=== PATIENT | male | born 1960 | race Caucasian/White ===

== ENCOUNTER → 2017-12-08 08:15 | Outpatient (CLI) | payer OTHER, SELFPAY ==
[2017-12-08 10:21] LABS: AST(SGOT) 21 U/L (15-37); Alanine Aminotransfer ALT/SGPT 39 U/L (16-61); Albumin, Serum 3.7 g/dL (3.2-5.0); Alkaline Phosphatase 54 U/L (45-117); Anion Gap 8 (5-15); BUN 18 mg/dL (7-18); BUN/Creat Ratio 14.1 RATIO (10-20); Bilirubin, Direct 0.09 mg/dL (0.00-0.30); Calcium,Total 8.5 mg/dL (8.5-10.1); Chloride 103 mmol/L (98-107); Cholesterol 142 mg/dL (200); Creatinine, Serum 1.28 mg/dL (0.70-1.30); EST Glomerular Filtration Rate 61 mL/min (>60); Est Glom Filt Rate - Afr Amer 74 mL/min (>60); Globulin 3.6 g/dL (2.2-4.2); Glucose 108 mg/dL (74-106); High Density Lipoprotein 25 mg/dL; Potassium 4.2 mmol/L (3.5-5.1); Protein, Total 7.3 g/dL (6.4-8.2); Sodium Level 137 mmol/L (136-145); Triglycerides 166 mg/dL; Very Low Density Lipoprotein 33 mg/dL (5-40)
[2017-12-08 10:24] LABS: Microalbumin,Random Urine 8.2 mg/L (NO RANGE EST.)
[2017-12-08 10:26] LABS: Hemoglobin A1c 6.5 % (4.2-6.3)
== END ==
PROVIDERS: Family Provider Family Medicine; PCP Family Medicine; Visit Provider Family Medicine
DX: E11.9 Type 2 diabetes mellitus without complications (principal)
CPT/HCPCS: 36415; 80048; 80061; 80076; 82043; 82570; 83036

== ENCOUNTER → 2018-10-06 08:47 | Outpatient (CLI) | payer OTHER, SELFPAY ==
[2018-10-06 10:23] LABS: Anion Gap 10 (5-15); BUN 22 mg/dL (7-18); BUN/Creat Ratio 18.6 RATIO (10-20); Calcium,Total 8.6 mg/dL (8.5-10.1); Chloride 104 mmol/L (98-107); Creatinine, Serum 1.18 mg/dL (0.70-1.30); EST Glomerular Filtration Rate 67 mL/min (>60); Est Glom Filt Rate - Afr Amer 81 mL/min (>60); Glucose 128 mg/dL (74-106); Potassium 4.1 mmol/L (3.5-5.1); Sodium Level 138 mmol/L (136-145)
[2018-10-06 10:43] LABS: Microalbumin,Random Urine 9.1 mg/L (NO RANGE EST.); Microalbumin:Creatinine Ratio 12.2 mg/g CRE (<30 mg/g CRE)
== END ==
PROVIDERS: Family Provider Family Medicine; PCP Family Medicine; Referring Provider Family Medicine; Visit Provider Family Medicine
DX: E11.9 Type 2 diabetes mellitus without complications (principal)
CPT/HCPCS: 36415; 80048; 82043; 82570

== ENCOUNTER → 2019-04-17 08:02 | Outpatient (CLI) | payer OTHER, SELFPAY ==
[2019-04-17 10:29] LABS: Anion Gap 6 (5-15); BUN 21 mg/dL (7-18); BUN/Creat Ratio 16.9 RATIO (10-20); Calcium,Total 8.9 mg/dL (8.5-10.1); Chloride 102 mmol/L (98-107); Cholesterol 159 mg/dL (200); Creatinine, Serum 1.24 mg/dL (0.70-1.30); EST Glomerular Filtration Rate 63 mL/min (>60); Est Glom Filt Rate - Afr Amer 76 mL/min (>60); Glucose 152 mg/dL (74-106); High Density Lipoprotein 25 mg/dL; Potassium 4.3 mmol/L (3.5-5.1); Sodium Level 136 mmol/L (136-145); Triglycerides 206 mg/dL; Very Low Density Lipoprotein 41 mg/dL (5-40)
== END ==
PROVIDERS: PCP Family Medicine; Visit Provider Family Medicine
DX: E11.9 Type 2 diabetes mellitus without complications (principal); E78.5 Hyperlipidemia, unspecified
CPT/HCPCS: 36415; 80048; 80061

== ENCOUNTER → 2019-05-14 16:58 | Outpatient (CLI) | payer OTHER, SELFPAY ==
[2019-05-14 18:12] LABS: Absolute Lymphocyte Count 1.52 X10^3/uL (0.83-4.51); Absolute Neutrophil Count 1.5 X10^3/uL (2.0-7.7); Basophil# 0.05 X10^3/uL; Basophil% 1.5 % (0-1); Eosinophil# 0.07 X10^3/uL; Hematocrit 44.6 % (40-54); Hemoglobin 15.1 g/dL (13.0-16.5); Lymphocyte # 1.52 X10^3/ul (4.0); Lymphocyte % 44.2 % (19-41); Mean Corp Hgb Conc 33.9 g/dL (32-36); Mean Corpuscular Hgb 29.5 pg (27.0-32.0); Mean Corpuscular Volume 87.1 fL (80-94); Monocyte# 0.25 X10^3/uL; Monocyte% 7.3 % (0-10); NRBC Flagged by Analyzer 0 % (0-5); Neutrophil # 1.54 X10^3/uL (2.7-7.7); Neutrophil % 44.7 % (47-70); Platelet Count 228 K/mm3 (150-450); RBC Distribution Width SD 38.5 fl (35.1-43.9); Red Blood Count 5.12 M/mm3 (4.6-6.2); White Blood Count 3.4 K/mm3 (4.4-11.0)
[2019-05-14 18:22] LABS: Erythrocyte Sedimentation Rate 14 mm/hr (0-20)
[2019-05-14 18:54] LABS: Anion Gap 9 (5-15); BUN 17 mg/dL (7-18); BUN/Creat Ratio 15.9 RATIO (10-20); Calcium,Total 8.8 mg/dL (8.5-10.1); Chloride 99 mmol/L (98-107); Creatinine, Serum 1.07 mg/dL (0.70-1.30); EST Glomerular Filtration Rate 75 mL/min (>60); Est Glom Filt Rate - Afr Amer 90 mL/min (>60); Glucose 76 mg/dL (74-106); Potassium 3.8 mmol/L (3.5-5.1); Rheumatoid Factor < 10.0 IU/mL (<15); Sodium Level 133 mmol/L (136-145)
[2019-05-16 17:05] LABS: ANTINUCLEAR ANTIBODIES DIRECT Positive (Negative)
== END ==
PROVIDERS: PCP Family Medicine; Referring Provider Family Medicine; Visit Provider Family Medicine
DX: M19.90 Unspecified osteoarthritis, unspecified site (principal)
CPT/HCPCS: 36415; 80048; 85025; 85652; 86038; 86140; 86431

== ENCOUNTER → 2020-01-09 08:42 | Outpatient (CLI) | payer OTHER, SELFPAY ==
[2020-01-09 10:21] LABS: Anion Gap 5 (5-15); BUN 19 mg/dL (7-18); BUN/Creat Ratio 17.3 RATIO (10-20); Calcium,Total 8.6 mg/dL (8.5-10.1); Chloride 105 mmol/L (98-107); EST Glomerular Filtration Rate 72 mL/min (>60); Est Glom Filt Rate - Afr Amer 87 mL/min (>60); Glucose 200 mg/dL (74-106); Potassium 4.3 mmol/L (3.5-5.1); Sodium Level 136 mmol/L (136-145)
== END ==
PROVIDERS: PCP Family Medicine; Referring Provider Family Medicine; Visit Provider Family Medicine
DX: Z00.00 Encounter for general adult medical examination without abnormal findings (principal); Z13.220 Encounter for screening for lipoid disorders
CPT/HCPCS: 36415; 80048

== ENCOUNTER → 2020-04-10 08:26 | Outpatient (CLI) | payer OTHER, SELFPAY ==
[2020-04-10 10:52] LABS: Anion Gap 6 (5-15); BUN 23 mg/dL (7-18); BUN/Creat Ratio 18.5 RATIO (10-20); Calcium,Total 8.9 mg/dL (8.5-10.1); Chloride 106 mmol/L (98-107); Cholesterol 199 mg/dL (200); Creatinine, Serum 1.24 mg/dL (0.70-1.30); EST Glomerular Filtration Rate 63 mL/min (>60); Est Glom Filt Rate - Afr Amer 76 mL/min (>60); Glucose 131 mg/dL (74-106); High Density Lipoprotein 29 mg/dL; Potassium 4.3 mmol/L (3.5-5.1); Sodium Level 137 mmol/L (136-145); Triglycerides 134 mg/dL; Very Low Density Lipoprotein 27 mg/dL (5-40)
[2020-04-10 11:15] LABS: Microalbumin,Random Urine 91.3 mg/L (NO RANGE EST.); Microalbumin:Creatinine Ratio 43.1 mg/g CRE (<30 mg/g CRE)
== END ==
PROVIDERS: PCP Family Medicine; Referring Provider Family Medicine; Visit Provider Family Medicine
DX: E11.9 Type 2 diabetes mellitus without complications (principal)
CPT/HCPCS: 36415; 80048; 80061; 82043; 82570

== ENCOUNTER → 2020-07-07 08:18 | Outpatient (CLI) | payer OTHER, SELFPAY ==
[2020-07-07 10:16] LABS: Anion Gap 9 (5-15); BUN 19 mg/dL (7-18); Calcium,Total 8.9 mg/dL (8.5-10.1); Chloride 97 mmol/L (98-107); Cholesterol 128 mg/dL (200); Creatinine, Serum 1.12 mg/dL (0.70-1.30); EST Glomerular Filtration Rate 71 mL/min (>60); Est Glom Filt Rate - Afr Amer 85 mL/min (>60); Glucose 216 mg/dL (74-106); High Density Lipoprotein 26 mg/dL; Potassium 4.1 mmol/L (3.5-5.1); Sodium Level 135 mmol/L (136-145); Triglycerides 202 mg/dL; Very Low Density Lipoprotein 40 mg/dL (5-40)
[2020-07-07 10:19] LABS: Hemoglobin A1c 8.6 % (3.8-5.6)
== END ==
PROVIDERS: PCP Family Medicine; Visit Provider Family Medicine
DX: E11.9 Type 2 diabetes mellitus without complications (principal)
CPT/HCPCS: 36415; 80048; 80061; 83036

== ENCOUNTER → 2021-01-07 08:35 | Outpatient (CLI) | payer OTHER, SELFPAY ==
[2021-01-07 10:37] LABS: Anion Gap 6 (5-15); BUN 19 mg/dL (7-18); BUN/Creat Ratio 15.2 RATIO (10-20); Calcium,Total 8.9 mg/dL (8.5-10.1); Chloride 101 mmol/L (98-107); Cholesterol 117 mg/dL (200); Creatinine, Serum 1.25 mg/dL (0.70-1.30); EST Glomerular Filtration Rate 62 mL/min (>60); Est Glom Filt Rate - Afr Amer 75 mL/min (>60); Glucose 149 mg/dL (74-106); High Density Lipoprotein 25 mg/dL; Sodium Level 133 mmol/L (136-145); Triglycerides 174 mg/dL; Very Low Density Lipoprotein 35 mg/dL (5-40)
== END ==
PROVIDERS: PCP Family Medicine; Referring Provider Family Medicine; Visit Provider Family Medicine
DX: E11.9 Type 2 diabetes mellitus without complications (principal)
CPT/HCPCS: 36415; 80048; 80061

== ENCOUNTER 2021-06-15 12:59 | Emergency (ER) | payer OTHER, SELFPAY ==
[2021-06-15 13:00] VITALS: BP 164/99; PULSE 84; RESP 18; TEMP 35.8; O2SAT 98; BMI 32.8
--- NOTE | 2021-06-15 13:35 | EKG12_ITS ---
Test Reason : DIZZINESS Blood Pressure : / mmHG Vent. Rate : 076 BPM Atrial Rate : 076 BPM P-R Int : 172 ms QRS Dur : 094 ms QT Int : 372 ms P-R-T Axes : 050 031 028 degrees QTc Int : 418 ms Normal sinus rhythm Normal ECG Confirmed by TRACY LEONARD, ESSIE ([id number]), acquisition editor AURORA PETE ([id number]) on 06/17/2021 11:37:34 AM Referred By: RITA Confirmed By:ESSIE MOLINA MD
--- NOTE | 2021-06-15 13:35 | CT_ITS ---
STUDY: CT BRAIN WITHOUT CONTRAST REASON FOR EXAM: Male, 61 years old. 3 day history of dizziness. RADIATION DOSAGE (If Supplied By Facility): CTDIvol = ( 44.99 ) mGy, DLP = ( 846.73 ) mGycm TECHNIQUE: Transaxial CT imaging of the brain was performed without administration of intravenous contrast material. Individualized dose optimization techniques were used for this CT. COMPARISON: No relevant priors. FINDINGS: Normal soft tissue structures. Normal calvarium. Normal size ventricles and extra-axial spaces for the patient''s age. Normal white matter tracts of the cerebral hemispheres. Normal basal ganglia and thalami. Normal brainstem. Normal cerebellum. There is no intracranial hemorrhage. There are no findings of an acute ischemic infarction. Normal visualized paranasal sinuses. CT/Brain/Head without Contrast IMPRESSION: Normal unenhanced CT scan of the brain. Electronically Signed: Lazaro Miller MD at 14:23 EDT ,
[2021-06-15 13:59] LABS: Absolute Lymphocyte Count 2.94 X10^3/uL (0.83-4.51); Absolute Neutrophil Count 4.4 X10^3/uL (2.0-7.7); Basophil% 1.2 % (0-1); Eosinophil# 0.12 X10^3/uL; Eosinophils% 1.5 % (0-5); Hematocrit 48.1 % (40-54); Hemoglobin 17.1 g/dL (13.0-16.5); Lymphocyte # 2.94 X10^3/ul (0.83-4.51); Lymphocyte % 35.9 % (19-41); Mean Corp Hgb Conc 35.6 g/dL (32-36); Mean Corpuscular Hgb 30.7 pg (27.0-32.0); Mean Corpuscular Volume 86.4 fL (80-94); Mean Platelet Vol. 9.1 fl (6.2-12.0); Monocyte# 0.59 X10^3/uL; Monocyte% 7.2 % (0-10); NRBC Flagged by Analyzer 0 % (0-5); Neutrophil # 4.43 X10^3/uL (2.7-7.7); Platelet Count 217 K/mm3 (150-450); RBC Distribution Width CV 12.5 % (11.6-14.6); RBC Distribution Width SD 39.2 fl (35.1-43.9); Red Blood Count 5.57 M/mm3 (4.6-6.2); White Blood Count 8.2 K/mm3 (4.4-11.0)
[2021-06-15 14:11] LABS: Anion Gap 6 (5-15); BUN 18 mg/dL (7-18); BUN/Creat Ratio 14.3 RATIO (10-20); Calcium,Total 9.5 mg/dL (8.5-10.1); Chloride 103 mmol/L (98-107); Creatinine, Serum 1.26 mg/dL (0.70-1.30); EST Glomerular Filtration Rate 61 mL/min (>60); Est Glom Filt Rate - Afr Amer 74 mL/min (>60); Estimated Creatinine Clearance 60.01 ml/min; Glucose 123 mg/dL (74-106); Potassium 3.8 mmol/L (3.5-5.1); Sodium Level 134 mmol/L (136-145)
--- NOTE | 2021-06-15 14:11 | RAD_ITS ---
STUDY: X-RAY CHEST REASON FOR EXAM: Male, 61 years old. Chest pain TECHNIQUE: Single AP portable view of the chest. COMPARISON: None. FINDINGS: EKG electrodes are seen. Hyperinflation. The lungs are clear. There is no demonstrated pleural abnormality. Normal size heart. Normal mediastinum and leonel. Normal visualized pulmonary arteries. There is atherosclerotic tortuosity of the aortic arch and descending thoracic aorta. Normal visualized thoracic spine. Normal visualized ribs, clavicles, and shoulders. There is no demonstrated abnormality of the visualized soft tissue structures of the upper abdomen. RAD/Chest 1 View (Portable) IMPRESSION: Hyperinflation. The lungs are clear. Electronically Signed: Lazaro Miller MD at 14:23 EDT ,
[2021-06-15 14:18] LABS: Troponin-I HS (w/2H Reflex) < 3 pg/mL (3.0-78.0)
[2021-06-15] MEDS: Meclizine HCl 25 MG Tablet PO (14:40)
[2021-06-15] MEDS: proMETHazine 25 MG/ML Syringe 12.5 MG IM (14:41)
[2021-06-15 14:53] VITALS: BP 129/73; BP 144/94; BP 146/94; PULSE 88; PULSE 90; PULSE 91
[2021-06-15 14:55] VITALS: BP 160/96; PULSE 75; RESP 20; O2SAT 95
[2021-06-15 15:56] LABS: Reflex Troponin-HS? (from REC) Y
--- NOTE | 2021-06-15 16:05 | EX.ED.DYSGE1 ---
HPI History of Present Illness Chief Complaint: Dizziness Narrative Narrative: 60-year-old male presenting with dizziness. He describes this as vertiginous and lightheaded. Is been ongoing for a few days. No traumatic injury. Mild headache. Mild nausea. No vomiting. Patient seen by his PCPs nurse practitioner today and sent to the ER for evaluation. Patient has history of diabetes, hypertension, hyperlipidemia. He does not have any chest pain or shortness of breath. No fever or chills. PFSH PFSH Medical History Diabetes GERD (gastroesophageal reflux disease) High cholesterol HTN (hypertension) Neuropathy Home Medications empagliflozin [Jardiance] 12.5 mg PO DAILY 06/15/21 [History Last Taken Unknown] esomeprazole magnesium 40 mg PO DAILY 06/15/21 [History Last Taken Unknown] gabapentin 600 mg PO QHS 06/15/21 [History Last Taken Unknown] icosapent ethyl [Vascepa] 2 g PO BID 06/15/21 [History Last Taken Unknown] lisinopril-hydrochlorothiazide 1 tab PO DAILY 06/15/21 [History Last Taken Unknown] meclizine 25 mg PO DAILY PRN #30 tab 06/15/21 [Rx Last Taken Unknown] rosuvastatin 5 mg PO DAILY 06/15/21 [History Last Taken Unknown] sitagliptin-metformin [Janumet] 1 tab PO BID 06/15/21 [History Last Taken Unknown] Allergy/AdvReac Type Severity Reaction Status Date / Time No Known Allergies Allergy Verified 06/15/21 13:02 Social History Smoking Status: Former smoker ROS ROS ED Constitutional Constitutional ED: Denies chills, fever(s) or sweats Eyes Eyes: Reports other Details: Blurry vision with dizziness when turning head ENT ENT ED: Denies rhinorrhea or sore throat Cardiovascular Cardiovascular: Denies chest pain or palpitations Respiratory/Chest Respiratory/Chest: Denies cough or dyspnea Gastrointestinal Gastrointestinal: Reports nausea; Denies abdominal pain Genitourinary Genitourinary ED: Denies dysuria Musculoskeletal Musculoskeletal: Denies arthralgias or myalgias Integumentary Denies rash Neurologic Neurologic: Reports headache(s); Denies paresthesias or weakness EXAM Physical Exam Const Vital Signs: 06/15/21 13:00 06/15/21 13:14 06/15/21 13:52 Temperature 96.5 F L Temperature Source Temporal Pulse Rate 84 Pulse Rate [Lying] Pulse Rate [Sitting (for 1 minute prior to obtaining)] Pulse Rate [Standing (for 1 minute prior to obtaining)] Respiratory Rate 18 Respiratory Effort Normal Non-Labored Respiratory Pattern Normal Blood Pressure 164/99 H Blood Pressure [Lying] Blood Pressure [Sitting (for 1 minute prior to obtaining)] Blood Pressure [Standing (for 1 minute prior to obtaining)] Blood Pressure Mean 120 Blood Pressure Mean [Lying] Blood Pressure Mean [Sitting (for 1 minute prior to obtaining)] Blood Pressure Mean [Standing (for 1 minute prior to obtaining)] Pulse Ox 98 Oxygen Delivery Method Room Air Room Air 06/15/21 14:53 06/15/21 14:55 Temperature Temperature Source Pulse Rate 75 Pulse Rate [Lying] 88 Pulse Rate [Sitting (for 1 minute prior to obtaining)] 90 Pulse Rate [Standing (for 1 minute prior to obtaining)] 91 Respiratory Rate 20 H Respiratory Effort Respiratory Pattern Blood Pressure 160/96 H Blood Pressure [Lying] 144/94 H Blood Pressure [Sitting (for 1 minute prior to obtaining)] 146/94 H Blood Pressure [Standing (for 1 minute prior to obtaining)] 129/73 H Blood Pressure Mean 117 Blood Pressure Mean [Lying] 110 Blood Pressure Mean [Sitting (for 1 minute prior to obtaining)] 111 Blood Pressure Mean [Standing (for 1 minute prior to obtaining)] 91 Pulse Ox 95 Oxygen Delivery Method Room Air Positive well nourished General Appearance ED: NAD; Negative for pallor HEENT Reports moist mucous membranes HEENT Narrative: Nystagmus and some reproducible vertiginous dizziness with [place]-Hallpike Negative for trauma Eyes PERRL and EOMs intact bilaterally Resp normal respiratory effort and clear to auscultation bilaterally Cardio regular rate and regular rhythm GI normal to inspection, nondistended, normoactive bowel sounds Extremity normal to inspection Neuro oriented x3 and CN's II-XII intact bilaterally Sensorium / Orientation: alert Motor Exam: strength 5/5 throughout Psych mental status grossly normal Skin no rashes or lesions noted General Skin Exam: Negative for jaundice or pallor MDM MDM MDM Narrative Medical decision making narrative: Patient does have some reproducible vertiginous dizziness and he does have nystagmus with [place]-Hallpike however he states he still feels lightheaded. I did do orthostatic vital signs and his blood pressure does drop by systolically by 17. Patient not reportedly symptomatic with this. CBC and BMP unremarkable. High-sensitivity protein less than 3. Obtained an EKG which on my interpretation shows a sinus rhythm with ventricular rate of 76 bpm without signs of dysrhythmia or ischemic change. Chest x-ray on my interpretation is no acute cardiopulmonary process and the radiologist agree. Obtain a CT of the brain which was also normal. On arrival patient was medicated with 12.5 mg of IM Phenergan and was given meclizine. His symptoms have now improved significantly on reevaluation. Discussed negative work-up. I will provide him with meclizine for home. He will follow-up with his primary care provider to ensure resolution. Impression: 1. Vertigo 2. Lightheadedness 3. Nausea 4. Headache Lab Data Attestation: I reviewed the patient's lab results. Labs: Laboratory Results - last 24 hr 06/15/21 06/15/21 06/15/21 13:50 13:50 13:50 WBC 8.2 RBC 5.57 Hgb 17.1 H Hct 48.1 MCV 86.4 MCH 30.7 MCHC 35.6 RDW Std Deviation 39.2 RDW Coeff of Nely 12.5 Plt Count 217 MPV 9.1 Immature Gran % (Auto) 0.200 Neut % (Auto) 54.0 Lymph % (Auto) 35.9 [place] % (Auto) 7.2 Eos % (Auto) 1.5 Baso % (Auto) 1.2 H Absolute Neuts (auto) 4.4 Absolute Lymphs (auto) 2.94 Nucleated RBC % 0 Sodium 134 L Potassium 3.8 Chloride 103 Carbon Dioxide 25.0 Anion Gap 6 BUN 18 Creatinine 1.26 Estim Creat Clear Calc 60.01 Est GFR (MDRD) Af Amer 74 Est GFR (MDRD) Non-Af 61 BUN/Creatinine Ratio 14.3 Glucose 123 H Calcium 9.5 Troponin I High Sens < 3 L Radiography Diagnostic Testing: Clinical Impression(s) from Imaging Studies Brain CT 06/15/21 13:35 IMPRESSION: Normal unenhanced CT scan of the brain. Electronically Signed: Lazaro Miller MD at 14:23 EDT , Chest X-Ray 06/15/21 14:11 IMPRESSION: Hyperinflation. The lungs are clear. Electronically Signed: Lazaro Miller MD at 14:23 EDT , Discharge Plan Triage Chief Complaint: Dizziness ED Provider: Rahat Pendleton Dx/Rx/DC Orders Instructions: ED Vertigo, Unspecified Prescriptions: New meclizine 25 mg tablet 25 mg PO DAILY PRN (Reason: dizziness) Qty: 30 RF: 0 No Action gabapentin 600 mg tablet 600 mg PO QHS RF: 0 esomeprazole magnesium 40 mg capsule,delayed release(DR/EC) 40 mg PO DAILY RF: 0 lisinopril-hydrochlorothiazide 20-25 mg tablet 1 tab PO DAILY RF: 0 rosuvastatin 5 mg tablet 5 mg PO DAILY RF: 0 Janumet 50-1,000 mg tablet 1 tab PO BID RF: 0 icosapent ethyl [Vascepa] 1 gram capsule 2 g PO BID RF: 0 Jardiance 25 mg Tablet 12.5 mg PO DAILY RF: 0 Primary Care Provider: Ej Oliveira Referrals: Ej Oliveira MD [Primary Care Provider] - Disposition Disposition: Home, Self Care
[2021-06-15 16:45] VITALS: BP 150/74; PULSE 75; RESP 16
== END 2021-06-15 16:55 | disposition home or self-care (01) ==
PROVIDERS: Emergency Provider Student in an Organized Health Care Education/Training Program; PCP Family Medicine; Visit Provider Student in an Organized Health Care Education/Training Program
DX: R42 Dizziness and giddiness (principal); E11.40 Type 2 diabetes mellitus with diabetic neuropathy, unspecified; R11.0 Nausea; R51.9 Headache, unspecified; I10 Essential (primary) hypertension; E78.5 Hyperlipidemia, unspecified; Z79.84 Long term (current) use of oral hypoglycemic drugs; Z79.899 Other long term (current) drug therapy; Z87.891 Personal history of nicotine dependence
CPT/HCPCS: 70450; 71045; 80048; 84484; 85025; 93005; 96372; 99285

== ENCOUNTER → 2023-10-14 | Outpatient (CLI) | payer MEDICARE, OTHER, SELFPAY ==
[2023-10-14 10:06] LABS: Absolute Lymphocyte Count 2.02 X10^3/uL (0.83-4.51); Absolute Neutrophil Count 3.2 X10^3/uL (2.0-7.7); Basophil# 0.06 X10^3/uL; Eosinophil# 0.08 X10^3/uL; Eosinophils% 1.4 % (0-5); Hematocrit 44.9 % (40-54); Hemoglobin 15.3 g/dL (13.0-16.5); Lymphocyte # 2.02 X10^3/ul (0.83-4.51); Lymphocyte % 35.3 % (19-41); Mean Corp Hgb Conc 34.1 g/dL (32-36); Mean Corpuscular Hgb 30.8 pg (27.0-32.0); Mean Corpuscular Volume 90.3 fL (80-94); Mean Platelet Vol. 9.6 fl (6.2-12.0); NRBC Flagged by Analyzer 0 % (0-5); Neutrophil # 3.15 X10^3/uL (2.7-7.7); Neutrophil % 55.1 % (47-70); Platelet Count 182 K/mm3 (150-450); RBC Distribution Width CV 12.5 % (11.6-14.6); RBC Distribution Width SD 41.1 fl (35.1-43.9); Red Blood Count 4.97 M/mm3 (4.6-6.2); White Blood Count 5.7 K/mm3 (4.4-11.0)
[2023-10-14 10:26] LABS: ALB/GLOB Ratio 0.9 RATIO (0.9-2.4); AST(SGOT) 21 U/L (15-37); Alanine Aminotransfer ALT/SGPT 31 U/L (16-61); Albumin, Serum 3.6 g/dL (3.2-5.0); Alkaline Phosphatase 59 U/L (45-117); Anion Gap 6 (5-15); BUN 21 mg/dL (7-18); BUN/Creat Ratio 15.6 RATIO (10-20); Chloride 107 mmol/L (98-107); Creatinine, Serum 1.35 mg/dL (0.70-1.30); EST Glomerular Filtration Rate 56 mL/min (>60); Est Glom Filt Rate - Afr Amer 68 mL/min (>60); Globulin 3.8 g/dL (2.2-4.2); Glucose 135 mg/dL (74-106); Lipase 44 U/L (13-75); Protein, Total 7.4 g/dL (6.4-8.2); Sodium Level 138 mmol/L (136-145)
== END | disposition home or self-care (01) ==
LOC: MTLAB 07:10
PROVIDERS: PCP Family Medicine; Referring Provider Family Medicine; Visit Provider Family Medicine
DX: R10.9 Unspecified abdominal pain (principal)
CPT/HCPCS: 36415; 80053; 83690; 85025

== ENCOUNTER → 2023-10-19 | Outpatient (CLI) | payer MEDICARE, OTHER, SELFPAY ==
--- NOTE | 2023-10-19 07:08 | US_ITS ---
STUDY: ABDOMINAL ULTRASOUND - RIGHT UPPER QUADRANT REASON FOR VISIT: Male, 63 years old Unspecified abdominal pain TECHNIQUE: Ultrasound evaluation of the right upper quadrant was performed with real-time and static zayas-scale imaging. TECHNICAL QUALITY: Adequate. COMPARISON: None. FINDINGS: Liver: The liver measures 15.0 cm. There is increased echogenicity consistent with fatty infiltration. The bile ducts are within normal limits. There is hepatic color flow. The direction of portal flow is hepatopetal. 2.5 cm cyst in the anterior right lobe of the liver. Gallbladder: Normal distended gallbladder. The gallbladder wall measures 2 mm. There is a negative sonographic Malik''s sign. There is no pericholecystic fluid. There are no gallstones. Common Bile Duct (C.B.D.): The common bile duct measures 4 mm. Pancreas: There is nonvisualization of the pancreas.. Right Kidney: Normal size of the right kidney. The right kidney measures 11.9 cm. Normal renal cortex. The right cortex measures 2.4 cm. There is no demonstrated renal mass or cyst. There is no right hydronephrosis. US/Abdomen Limited IMPRESSION: Fatty infiltration of liver. Electronically Signed: Viral White MD at 8:59 EDT ,
== END | disposition home or self-care (01) ==
PROVIDERS: PCP Family Medicine; Referring Provider Family Medicine; Visit Provider Family Medicine
DX: R10.11 Right upper quadrant pain (principal)
CPT/HCPCS: 76705

== ENCOUNTER → 2024-12-19 | Outpatient (CLI) | payer MEDICARE, OTHER, SELFPAY ==
--- NOTE | 2024-12-19 14:33 | CT_ITS ---
PROCEDURE: SOFT TISSUE NECK WITH CONTRAST 12/19/2024 REASON FOR EXAM: MASS Right-sided mass. TECHNIQUE: Procedure Code: CTNEW Modality: CT Procedure: SOFT TISSUE NECK WITH CONTRAST CONTRAST: Isovue-300 VOLUME: 100 mL One or more dose reduction techniques were used (e.g., Automated exposure control, adjustment of the mA and/or kV according to patient size, use of iterative reconstruction technique). RADIATION DOSE SUMMARY: CTDlvol: 16.76 mGy DLP: 686.77 mGycm COMPARISON: None FINDINGS: Airway: Midline and patent. Asymmetrical soft tissue prominence in the region of the right piriform sinus with extension into the midline. A neoplastic process should be ruled out. Salivary glands: Unremarkable. Lymph nodes: There is evidence of a 1.8 cm x 2.6 cm necrotic lymph nodes in the anterior triangle of the neck just deep to the right sternal clinoid mastoid muscle. This is heterogeneous in appearance and is suggestive of necrotic changes. Thyroid: Unremarkable. Vasculature: Mild calcified plaque of the carotid arteries. Orbits: Unremarkable at visualized levels. Paranasal sinuses and mastoids: Grossly clear at visualized levels. Lung apices: Clear. Upper mediastinum: Visualized mediastinum is unremarkable. Bones: Multilevel degenerative changes of the spine. Other: CT/Soft Tissue Neck WITH Contrast IMPRESSION: Necrotic lymph node in the anterior triangle of the right neck with heterogeneo us enlargement of the right piriform sinus as described. Neoplastic process should be ruled out. Reading Location: [place] [id number]
[2024-12-19 14:51] LABS: CREATININE FINGERSTICK 1.3 mg/dL (0.70-1.30); EGFR FINGERSTICK 59.0000 mL/min (>60)
== END | disposition home or self-care (01) ==
LOC: CT 14:10
PROVIDERS: PCP Family Medicine; Referring Provider Otolaryngology; Visit Provider Otolaryngology
DX: R22.1 Localized swelling, mass and lump, neck (principal); C77.0 Secondary and unspecified malignant neoplasm of lymph nodes of head, face and neck; C09.9 Malignant neoplasm of tonsil, unspecified
CPT/HCPCS: 70491; Q9967

== ENCOUNTER 2024-12-24 09:44 | Day surgery (SDC) | payer MEDICARE, OTHER, SELFPAY ==
--- NOTE | 2024-12-21 14:58 | PAT.ANE_ITS ---
Pre-Assessment Diagnosis/Proposed Procedure Planned Operative Procedure(s): TONSILLECTOMY Anesthesia History Anesthesia History - cumulative effects analyst: Anesthesia History - cumulative effects analyst Hx Hospitalization No 12/21/24 14:05 Any Problems With Anesthesia No 12/21/24 14:05 Cholinesterase deficiency No 12/21/24 14:05 You/Your Family Experience No 12/21/24 14:05 fever (hyperthermia) with Relationship Recent Exposure to Contagious Disease Does patient have nerve No 12/21/24 14:05 stimulator Patient instructed to have device shut off --Does patient have Pacemaker or ICD? When Was Last Pacemaker Check QUESTION #4 FULL TEXT: You/Your Family Experience fever (hyperthermia) with Anesthesia Last Oral Intake Last Oral intake: Last Oral Intake NPO since Meds taken in AM with sips of water? Meds patient instructed to take am of surgery PONV PONV - cumulative effects analyst: PONV - cumulative effects analyst Female No 12/21/24 14:05 HX of Motion Sickness No 12/21/24 14:05 HX of N/V After Surgery Yes 12/21/24 14:05 Non-Smoker Yes 12/21/24 14:05 Duration of Surgery greater No 12/21/24 14:05 than 60 minutes Number of Risk Factors 2 12/21/24 14:05 PONV Score Moderate Risk 12/21/24 14:05 Height & Weight Height & Weight: Anesthesia: Height & Weight Height 5 ft 9 in 06/15/21 13:00 Respiratory Assessment Respiratory Assessment - cumulative effects analyst: Respiratory Tract Infection Hx - cumulative effects analyst Hx Respiratory Tract Infection No 12/21/24 14:05 STOP Sleep Apnea STOP Sleep Apnea - cumulative effects analyst: STOP Sleep Apnea - cumulative effects analyst Hx Hypertension Yes: CONTROLLED ON MED 12/21/24 14:05 Hx Sleep Apnea No 12/21/24 14:05 CPAP BIPAP Do you snore loudly (louder No 12/21/24 14:05 than talking or can be heard Do you often feel tired/ No 12/21/24 14:05 fatigued/ sleepy during daytime? Has anyone observed you stop No 12/21/24 14:05 breathing during sleep? STOP Results Negative 12/21/24 14:05 QUESTION #5 FULL TEXT : Do you snore loudly (louder than talking or can be heard through closed doors)? 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 Specify any problems Hx of Preganancy in last 3 N/A 12/21/24 14:05 Months Nurse Filling Out Transfusion VCHRISTIN 12/21/24 14:05 & Questions: Date: 12/21/24 12/21/24 14:05 Time: 14:07 12/21/24 14:05 Patient unable to answer at this time (ie. confused, unrespo /Reproduction History /Reproductive History - cumulative effects analyst: /Reproductive Hx- cumulative effects analyst Hx Now No 12/21/24 14:05 Gestational Age (in weeks): EDC: Hx Hx Para Hx Section SAB No 12/21/24 14:05 [facility] Medical History (Updated 12/21/24 @ 14:05 by Fang Dietz) Wears hearing aid Wears glasses Gastric reflux Shortness of breath on exertion High cholesterol GERD (gastroesophageal reflux disease) Neuropathy HTN (hypertension) Diabetes Home Medications Medication Instructions Recorded Last Taken Type gabapentin 600 mg tablet 600 mg PO QHS 06/15/21 Unkno wn History meclizine 25 mg tablet 25 mg PO DAILY PRN dizziness #30 06/15/21 Unknown Rx tabs rosuvastatin 5 mg tablet 5 mg PO DAILY 06/15/21 Unkno wn History aspirin 81 mg capsule 81 mg PO DAILY 12/21/2412/05 History empagliflozin 12.5 mg-metformin 1 tab PO DAILY 5 12/21/24 History 1,000 mg tablet lisinopril 30 mg tablet 30 mg PO DAILY 12/21/24 Unkn own History omeprazole 20 mg capsule,delayed 20 mg PO BID 12/21/24 Unknown History release semaglutide 1 mg/dose (4 mg/3 mL) 1 mg subcut QWEEK 12/16/24 History subcutaneous pen injector (Ozempic) Allergy/AdvReac Type Severity Reaction Status Date / Time No Known Allergies Allergy Verified 12/21/24 13:53 Surgical History (Updated 12/21/24 @ 14:05 by Fang Dietz) History of carpal tunnel release of both wrists Social History Smoking Status: Former smoker Recommendation Anesthesia Recommendation Anesthesia recommendation: OPTIMIZED for anesthesia
[2024-12-24] VITALS (7 sets, daily range): BP systolic 154–174; BP diastolic 87–101; PULSE 69–72; RESP 16; TEMP 36.2–36.6; O2SAT 97–100; BMI 30.6
--- NOTE | 2024-12-24 09:50 | PRE.ANES_ITS ---
ASA Classification* ASA Classification ASA Classification: 3 Assessment & Plan Anesthesia* Anesthesia Assessment Anesthesia Assessment: Discussed sedation and/or anesthesia options, risks, benefits, and alternatives with patient/parents/legal guardian/POA. Questions invited. The patient/parents/legal guardian/POA seems to understand and agrees to proceed with anesthesia plan. Reviewed the physical assessment, medical history, allergy history and patient home medications list prior to surgery/procedure/anesthetic and documented any changes. Performed airway and anesthesia risk assessments. Anesthesia Type Anesthesia Type: General Anesthesia Focused Assessment* Airway Assessment Mouth opens: >3 cm Mallampati Score: II Labs Anesthesia Preop lab: CBC WBC, (4.4-11.0) 5.7 K/mm3 10/14/23, 07:13 RBC, (4.6-6.2) 4.97 M/mm3 10/14/23, 07:13 Hgb, (13.0-16.5) 15.3 g/dL 10/14/23, 07:13 Hct, (40-54) 44.9 % 10/14/23, 07:13 Plt Count, (150-450) 182 K/mm3 10/14/23, 07:13 CHEMISTRY Potassium, (3.5-5.1) 4.0 mmol/L 10/14/23, 07:13 Sodium, (136-145) 138 mmol/L 10/14/23, 07:13 BUN, (7-18) 21 mg/dL H 10/14/23, 07:13 Creatinine, (0.70-1.30) 1.35 mg/dL H 10/14/23, 07:13 Glucose, (74-106) 135 mg/dL H 10/14/23, 07:13 COAG Pre-Assessment Diagnosis/Proposed Procedure Planned Operative Procedure(s): TONSILLECTOMY Anesthesia History Anesthesia History - central sterile tech: Anesthesia History - central sterile tech Hx Hospitalization No 12/21/24 14:05 Any Problems With Anesthesia No 12/21/24 14:05 Cholinesterase deficiency No 12/21/24 14:05 You/Your Family Experience No 12/21/24 14:05 fever (hyperthermia) with Relationship Recent Exposure to Contagious Disease Does patient have nerve No 12/21/24 14:05 stimulator Patient instructed to have device shut off --Does patient have Pacemaker or ICD? When Was Last Pacemaker Check QUESTION #4 FULL TEXT: You/Your Family Experience fever (hyperthermia) with Anesthesia Last Oral Intake Last Oral intake: Last Oral Intake NPO since Meds taken in AM with sips of water? Meds patient instructed to take am of surgery PONV PONV - central sterile tech: PONV - central sterile tech Female No 12/21/24 14:05 HX of Motion Sickness No 12/21/24 14:05 HX of N/V After Surgery Yes 12/21/24 14:05 Non-Smoker Yes 12/21/24 14:05 Duration of Surgery greater No 12/21/24 14:05 than 60 minutes Number of Risk Factors 2 12/21/24 14:05 PONV Score Moderate Risk 12/21/24 14:05 Height & Weight Height & Weight: Anesthesia: Height & Weight Height 5 ft 9 in 06/15/21 13:00 Respiratory Assessment Respiratory Assessment - central sterile tech: Respiratory Tract Infection Hx - central sterile tech Hx Respiratory Tract Infection No 12/21/24 14:05 STOP Sleep Apnea STOP Sleep Apnea - central sterile tech: STOP Sleep Apnea - central sterile tech Hx Hypertension Yes: CONTROLLED ON MED 12/21/24 14:05 Hx Sleep Apnea No 12/21/24 14:05 CPAP BIPAP Do you snore loudly (louder No 12/21/24 14:05 than talking or can be heard Do you often feel tired/ No 12/21/24 14:05 fatigued/ sleepy during daytime? Has anyone observed you stop No 12/21/24 14:05 breathing during sleep? STOP Results Negative 12/21/24 14:05 QUESTION #5 FULL TEXT : Do you snore loudly (louder than talking or can be heard through closed doors)? 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 Specify any problems Hx of Preganancy in last 3 N/A 12/21/24 14:05 Months Nurse Filling Out Transfusion VCHRISTIN 12/21/24 14:05 & Questions: Date: 12/21/24 12/21/24 14:05 Time: 14:07 12/21/24 14:05 Patient unable to answer at this time (ie. confused, unrespo /Reproduction History /Reproductive History - central sterile tech: /Reproductive Hx- central sterile tech Hx Now No 12/21/24 14:05 Gestational Age (in weeks): EDC: Hx Hx Para Hx Section SAB No 12/21/24 14:05 [facility] Medical History Wears hearing aid Wears glasses Gastric reflux Shortness of breath on exertion High cholesterol GERD (gastroesophageal reflux disease) Neuropathy HTN (hypertension) Diabetes Home Medications Medication Instructions Recorded Last Taken Type gabapentin 600 mg tablet 600 mg PO QHS 06/15/21 Unkno wn History meclizine 25 mg tablet 25 mg PO DAILY PRN dizziness #30 06/15/21 Unknown Rx tabs rosuvastatin 5 mg tablet 5 mg PO DAILY 06/15/21 Unkno wn History aspirin 81 mg capsule 81 mg PO DAILY 12/21/2412/05 History empagliflozin 12.5 mg-metformin 1 tab PO DAILY 5 12/21/24 History 1,000 mg tablet lisinopril 30 mg tablet 30 mg PO DAILY 12/21/24 Unkn own History omeprazole 20 mg capsule,delayed 20 mg PO BID 12/21/24 Unknown History release semaglutide 1 mg/dose (4 mg/3 mL) 1 mg subcut QWEEK 12/16/24 History subcutaneous pen injector (Ozempic) Allergy/AdvReac Type Severity Reaction Status Date / Time No Known Allergies Allergy Verified 12/21/24 13:53 Surgical History History of carpal tunnel release of both wrists Social History Smoking Status: Former smoker Review of Systems (Anesthesia) ROS Narrative System reviewed and no additional complaints, except as documented.
--- NOTE | 2024-12-24 09:51 | EKG12_ITS ---
Test Reason : PRE OP Blood Pressure : */* mmHG Vent. Rate : 63 BPM Atrial Rate : 63 BPM P-R Int : 186 ms QRS Dur : 94 ms QT Int : 388 ms P-R-T Axes : 52 36 41 degrees QTcB Int : 397 ms Normal sinus rhythm Normal ECG When compared with ECG of 15-Jun-2021 14:06, No significant change was found Confirmed by Karthik Ghotra ([id number]), field map editor MICHAEL NO ([id number]) on 12/25/2024 12:49:28 PM Referred By: Andres Mobley Confirmed By: Karthik Ghotra
[2024-12-24] MEDS: Lactated Ringers 1,000 ML 15 ML IV (10:23)
[2024-12-24 10:26] LABS: Hematocrit 43.4 % (40-54); Hemoglobin 15.0 g/dL (13.0-16.5); Immature Granulocytes Count 0.000 X10^3/uL (0.0-0.0); Mean Corp Hgb Conc 34.6 g/dL (32-36); Mean Corpuscular Volume 89.7 fL (80-94); Mean Platelet Vol. 9.1 fl (6.2-12.0); NRBC Flagged by Analyzer 0 % (0-5); Platelet Count 154 K/mm3 (150-450); RBC Distribution Width CV 12.2 % (11.6-14.6); RBC Distribution Width SD 40.1 fl (35.1-43.9); Red Blood Count 4.84 M/mm3 (4.6-6.2); White Blood Count 4.3 K/mm3 (4.4-11.0)
--- OUTSIDE RECORDS SUMMARY | 2024-12-24 10:44 | XMS RPT_ITS | CCD ---
Author Organization [facility] Care Team Providers Care Boarding Machine Operator Name Role Phone Ej Oliveira Primary Care Unavailable Andres Mobley Referring Unavailable Andres Mobley Attending Unavailable Andres Mobley Attending Unavailable Ej Oliveira Primary Care Unavailable Andres Mobley Referring Unavailable Problems Problem Classification Problem Date Documented Da te Episodic/Chronic Other skin disorders (1 source) Localized swelling, mass and lump, neck; Translations: [Localized swelling, mass and lump, neck] Onset: 12-19-2024 Episodic Results Test Name Value Interpretation Reference Range Facil ity MR/PATCarlosANEon 12-21-2024 MR/PAT.[facility] Medical Records Department [address] [place] [address] PAT - Anesthesia 12/21/24 1458 MR#: [id number] Acct: [id number] Name: GEORGETTE YAN Rep #: [id number] : 1960 64 From: Stephen Mazariegos MD PCP: Dr. 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 When Was Last Pacemaker Check QUESTION #4 FULL TEXT: You/Your Family Experience fever (hyperthermia) with Anesthesia Last Oral Intake Last Oral intake: Last Oral Intake NPO since Meds taken in AM with sips of water? 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 Female No 12/21/24 14:05 HX of Motion Sickness No 12/21/24 14:05 HX of N/V After Surgery Yes 12/21/24 14:05 Non-Smoker Yes 12/21/24 14:05 Duration of Surgery greater No 12/21/24 14:05 than 60 minutes Number of Risk Factors 2 12/21/24 14:05 PONV Score Moderate Risk 12/21/24 14:05 Height Weight Height Weight: Anesthesia: Height Weight Height 5 ft 9 in 06/15/21 13:00 Respiratory Assessment Respiratory Assessment - oil well gun perforator operator: Respiratory Tract Infection Hx - oil well gun perforator operator Hx Respiratory Tract Infection No 12/21/24 14:05 STOP Sleep Apnea STOP Sleep Apnea - oil well gun perforator operator: STOP Sleep Apnea - oil well gun perforator operator Hx Hypertension Yes: CONTROLLED ON MED 12/21/24 14:05 Hx Sleep Apnea No 12/21/24 14:05 CPAP BIPAP Do you snore loudly (louder No 12/21/24 14:05 than talking or can be heard Do you often feel tired/ No 12/21/24 14:05 fatigued/ sleepy during daytime? Has anyone observed you stop No 12/21/24 14:05 breathing during sleep? STOP Results Negative 12/21/24 14:05 QUESTION #5 FULL TEXT : Do you snore loudly (louder than talking or can be heard through closed doors)? 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 Specify any problems Hx of Preganancy in last 3 N/A 12/21/24 14:05 Months Nurse Filling Out Transfusion VCHRISTIN 12/21/24 14:05 Questions: Date: 12/21/24 12/21/24 14:05 Time: 14:07 12/21/24 14:05 Patient unable to answer at this time (ie. confused, unrespo /Reproductio n History /Reproductiv e History - oil well gun perforator operator: /Reproductiv e Hx- oil well gun perforator operator Hx Now No 12/21/24 14:05 Gestational Age (in weeks): EDC: Hx Hx Para Hx Section SAB No 12/21/24 14:05 [facility] Medical History (Updated 12/21/24 @ 14:05 by Fang Dietz) Wears hearing aid Wears glasses Gastric reflux Shortness of breath on exertion High cholesterol GERD (gastroesophageal reflux disease) Neuropathy HTN (hypertension) Diabetes Home Medications ???Medication ???Instructions ???Recorded ???Last Taken ???Type gabapentin 600 mg tablet 600 mg PO QHS 06/15/21 Unknown His tory meclizine 25 mg tablet 25 mg PO DAILY PRN dizziness #30 0 06/15/21 Unknown Rx tabs rosuvastatin 5 mg tablet 5 mg PO DAILY 06/15/21 Unknown His tory aspirin 81 mg capsule 81 mg PO DAILY 12/21/24 12/15/24 H istory empagliflozin 12.5 mg-metformin 1 tab PO DAILY 12/21/24 12/21/24 H istory 1,000 mg tablet lisinopril 30 mg tablet 30 mg PO DAILY 12/21/24 Unknown Hi story omeprazole 20 mg capsule,delayed 20 mg PO BID 12/21/24 Unknown Hist ory release semaglut (more content not included)... Normal [facility] CREATININE FINGERSTICKon Creatinine [Mass/Vol] 1.3 mg/dL Normal 0.70-1.30 [facility] Comment on above: Performed By: #### L 9100.0200 #### [facility] [address] [place], [address] GFR/1.73 sq M.predicted among non-blacks MDRD (S/P/Bld) [Vol rate/Area] 59.0000 mL/min/{1.73_m2} Low >60 [facility] Comment on above: Performed By: #### L 9100.0200 #### [facility] [address] [place], [address] Soft Tissue Neck WITH Contra ston 12-19-2024 Soft Tissue Neck WITH Contrast [facility] Imaging Services [address] [place] [address] Soft Tissue Neck WITH Contrast MR#: [id number] Acct: [id number] Name: GEORGETTE YAN Rep #: [id number] : 1960 M 64 From: Lazaro valiente MD PCP: Dr. Ej Oliveira MD Status: REG CLI Study: Soft Tissue Neck WITH Contrast Date of Exam: Exam# [id number] Ordering Dr: Andres Mobley MD PROCEDURE: SOFT TISSUE NECK WITH CONTRAST 12/19/2024 REASON FOR EXAM: MASS Right-sided mass. TECHNIQUE: Procedure Code: CTNEW Modality: CT Procedure: SOFT TISSUE NECK WITH CONTRAST CONTRAST: Isovue-300 VOLUME: 100 mL One or more dose reduction techniques were used (e.g., Automated exposure control, adjustment of the mA and/or kV according to patient size, use of iterative reconstruction technique). RADIATION DOSE SUMMARY: CTDlvol: 16.76 mGy DLP: 686.77 mGycm COMPARISON: None FINDINGS: Airway: Midline and patent. Asymmetrical soft tissue prominence in the region of the right piriform sinus with extension into the midline. A neoplastic process should be ruled out. Salivary glands: Unremarkable. Lymph nodes: There is evidence of a 1.8 cm x 2.6 cm necrotic lymph nodes in the anterior triangle of the neck just deep to the right sternal clinoid mastoid muscle. This is heterogeneous in appearance and is suggestive of necrotic changes. Thyroid: Unremarkable. Vasculature: Mild calcified plaque of the carotid arteries. Orbits: Unremarkable at visualized levels. Paranasal sinuses and mastoids: Grossly clear at visualized levels. Lung apices: Clear. Upper mediastinum: Visualized mediastinum is unremarkable. Bones: Multilevel degenerative changes of the spine. Other: CT/Soft Tissue Neck WITH Contrast IMPRESSION: Necrotic lymph node in the anterior triangle of the right neck with heterogeneous enlargement of the right piriform sinus as described. Neoplastic process should be ruled out. Reading Location: [place] [address] CC: Dr. Andres Mobley MD; Dr. Ej Oliveira MD Senior Sharepoint Developer: Signed Normal [facility] Encounters Encounter Date Encounter Type Care Provider Facility Start: 12-24-2024 ambulatory Ej Oliviera Facility:[facility] Start: 12-19-2024 ambulatory Andres Mobley Facility:[facility] Payers Date Payer Category Payer [employer] ( and others) [id number] 2024 Medicare [id number] 2024 Self-pay Unknown [id number] Unknown [id number] Summary Purpose Family History No Family History Records Found Advance Directives No Advanced Directives Records Found Additional Source Comments (unrecognized sect ion and content) No Status Records Found INFORMATION SOURCE (unrecogn ized section and content) DATE CREATED AUTHOR 12/23/2024 [facility] FOR RECORDS PERTAINING TO PATIENTS WHO ARE OR HAVE BEEN ENROLLED IN A CHEMICAL DEPENDENCY/SUBSTANCEABUSE PROGRAM, SOME INFORMATION MAY BE OMITTED. This clinical summary was aggregated from multiple sources. Caution should be exercised in using it in the provision of clinical care. This summary normalizes information from multiple sources, and as a consequence, information in this document may materially change the coding, format and clinical context of patient data. In addition, data may be omitted in some cases. CLINICAL DECISIONS SHOULD BE BASED ON THE PRIMARY CLINICAL RECORDS. [employer] provides no warranty or guarantee of the accuracy or completeness of information in this document.
[2024-12-24 10:52] LABS: Anion Gap 9 (5-15); BUN 19 mg/dL (4-19); BUN/Creat Ratio 16.2 RATIO (10-20); Calcium,Total 8.5 mg/dL (7.6-11.0); Carbon Dioxide 22.9 mmol/L (21.0-32.0); Chloride 106 mmol/L (98-108); Estimated Creatinine Clearance 70.29 ml/min (50-250); Glucose 113 mg/dL (70-99); Potassium 4.3 mmol/L (3.3-5.1)
--- NOTE | 2024-12-24 11:15 | TONS_PTH ---
PATIENT: GEORGETTE YAN LOC: [facility] U#:[id number] AGE/SX: 64/M ROOM: RE12/24/[address]: Dr. Andres Mobley MD : 1960 BED: DIS: 12/24/2024 SPEC #: [id number] RECD: 12/24/24 13:40 STATUS: FELIX REAracelis #: [id number] ARPITA: 12/24/24 11:[address]: Andres Mobley DEPT: SURGICAL PATHOLOGY RECD BY: Patrick Eisenberg ENTERED: 12/24/24 14:28 SP TYPE: TONSILS OTHR DR: Dr. Ej Oliveira MD Tissues: A - Tonsil, NOS Procedures: Immunohistochemical Stains Surgery Specimen Level III IHC Stain ADDITIONAL HEADER OPERATION: Tonsillectomy PRE-OP DIAGNOSIS: Malignant neoplasm of tonsil, cancer of lymph node of neck, dysphagia TISSUE SUBMITTED: A- Right tonsil, B- Left tonsil MICROSCOPIC DIAGNOSIS A. Right tonsil, tonsillectomy: * Squamous cell carcinoma (See note) Note: The lesion measures 2.5 cm in greatest dimension and extends to the inked/cauterized resection margin. Immunohistochemical staining is performed and shows positive reactivity with p40 and p16 (diffuse). The findings support the diagnosis. B. Left tonsil, tonsillectomy: * Negative for carcinoma * Lymphoid follicular hyperplasia MICROSCOPIC DESCRIPTION Slides are reviewed. GROSS DESCRIPTION Received in 2 formalin containers labeled with the patient's name and date of . Designated as: A. "Right tonsil" is a 10.4 g , 5.4 x 3.1 x 1.8 cm tonsillectomy devoid of orientation. Specimen is focally disrupted at 1 end. The mucosa is a chavez-pink with ulcerative granularity and focal exudate. The intact, cauterized resection margin is inked black. Sectioning reveals chavez-pink to red, granular cut surfaces with a pale chavez, granular, ill-defined apparent mass, 2.5 x 1.9 x 1.1 cm. Grossly, the mass abuts the inked resection margin. The specimen is entirely submitted in 10 cassettes. B. "Left tonsil" is a 3 g, 3.2 x 1.6 x 1.4 cm tonsil surfaced by chavez-pink focally erythematous mucosa. The resection margin is inked green. Sectioning reveals chavez-pink, cryptic cut surfaces containing minimal grumous material. Piping Engineer sections are submitted in 2 cassettes. MO 12/24/2024PT:[id number]
[2024-12-24] MEDS: Midazolam 2 MG/2 ML Syringe IV (11:45)
--- NOTE | 2024-12-24 11:47 | DS.PCM_ITS ---
Providers Primary Care Physician: Dr. Ej Oliveira MD Reason For Visit: Tonsillectomy Medications at Discharge Home Medications gabapentin 600 mg tablet 600 mg PO QHS 06/15/21 meclizine 25 mg tablet 25 mg PO DAILY PRN dizziness #30 tabs 06/15/21 rosuvastatin 5 mg tablet 5 mg PO DAILY 06/15/21 aspirin 81 mg capsule 81 mg PO DAILY 12/21/24 empagliflozin 12.5 mg-metformin 1,000 mg tablet 1 tab PO DAILY 12/21/24 lisinopril 30 mg tablet 30 mg PO DAILY 12/21/24 omeprazole 20 mg capsule,delayed release 20 mg PO BID 12/21/24 semaglutide 1 mg/dose (4 mg/3 mL) subcutaneous pen injector (Ozempic) 1 mg subcut QWEEK 12/21/24 Weight / BMI Weight Weight: 94 kg Body Mass Index (BMI) 30.6 ABG / Lab / Microbiology Data 12/24/24 10:15 12/24/24 10:15 Laboratory: Laboratory Results - last 24 hr 12/24/24 10:15: WBC 4.3 L, RBC 4.84, Hgb 15.0, Hct 43.4, MCV 89.7, MCH 31.0, MCHC 34.6, RDW Std Deviation 40.1, RDW Coeff of Nely 12.2, Plt Count 154, MPV 9.1, Immature Gran % (Auto) 0.000, Neut % (Auto) 50.2, Lymph % (Auto) 39.0, [place] % (Auto) 8.1, Eos % (Auto) 1.8, Baso % (Auto) 0.9, Absolute Neuts (auto) 2.2, Absolute Lymphs (auto) 1.69, Nucleated RBC % 0, Sodium 137, Potassium 4.3, Chloride 106, Carbon Dioxide 22.9, Anion Gap 9, BUN 19, Creatinine 1.17, Estim Creat Clear Calc 70.29, Est GFR (MDRD) Non-Af 69, BUN/Creatinine Ratio 16.2, G lucose 113 H, Hemoglobin A1c 6.3 H, Calcium 8.5 D/C Instructions Discharge Activity: Return to Normal Activity Additional Activity Instructions: Soft diet x 2 weeks DC O2, CPAP, BIPAP Needs Home O2 Discharge instructions: No Please Follow Up With: Andres Mobley MD When: 2 weeks Meaningful Use Info Meaningful Use Meaningful Use Diagnoses (Choose all that apply): None applicable Discharge Plan Admission Attending Provider: Andres Mobley Primary Care Provider: Ej Oliveira Instructions Print Language: Luxembourgish Discharge Orders/Prescriptions Prescriptions: No Action gabapentin 600 mg tablet 600 mg PO QHS rosuvastatin 5 mg tablet 5 mg PO DAILY meclizine 25 mg tablet 25 mg PO DAILY PRN (Reason: dizziness) Qty: 30 0RF omeprazole 20 mg capsule,delayed release(DR/EC) 20 mg PO BID empagliflozin-metformin 12.5-1,000 mg tablet 1 tab PO DAILY lisinopril 30 mg tablet 30 mg PO DAILY aspirin 81 mg capsule 81 mg PO DAILY Ozempic 1 mg/dose (4 mg/3 mL) pen injector 1 mg subcut QWEEK Referrals / Follow Up: Ej Oliveira MD [Primary Care Provider, Family Practice] Disposition Disposition (needs filled in before D/C Order can be placed): Home, Self Care
[2024-12-24] MEDS: fentaNYL 100 MCG/2 ML Ampul IV (11:50)
--- NOTE | 2024-12-24 12:24 | PCM.OPRPT ---
Operative Report (Standard) Operative Information Date of Procedure: 12/24/24 Pre-Operative Diagnosis: right tonsil neoplasm Post-Operative Diagnosis: same Surgery/Procedure Performed: tonsillectomy hospitalist nocturnist physician: No Type of Anesthesia: General RN Documented Start/Stop Times: Operation Date: 12/24/24 11:15 Case Time Into Pre-Op 12/24/24 09:53 Out of Pre-Op 12/24/24 11:42 Anesthesia Start 12/24/24 11:45 Into Room 12/24/24 11:45 Procedure Start 12/24/24 12:03 Procedure End 12/24/24 12:22 Procedure Start Time: 12:03 Procedure Stop Time: 12:22 Select all DRAINS/GRAFTS/IMPLANTS that apply: None Estimated Blood Loss: minimal Specimen collected: Yes Description of specimen(s) removed: bilateral tonsils Description of surgery: The patient was taken to the OR on 12/24/2024. The patient was placed in the supine position on the OR table. The patient was given sufficient general endotracheal anesthesia. The table was turned 90 degrees clockwise. A Caleb mouthgag was inserted into the patient's mouth. The patient was suspended on a Smith stand. The right tonsil was grasped with an Allis clamp and removed using a bovie cautery. Absolute hemostasis was achieved using suction cautery. The left tonsil was grasped with an Allis clamp and removed using a bovie cautery. Absolute hemostasis was achieved using suction cautery. Absolute hemostasis was achieved on the adenoid bed using suction cautery. .5% marcaine was placed on an adenoid sponge and placed in each tonsillar fossa for one minute on each side and then removed. The gag was closed. It was re opened to inspect for bleeding and there was none. The gag was then removed. The patient was then awoken and brought to the recovery room in stable condition. Blood loss minimal, replacement none. Sponge, needle and instrument count were correct at the end of the procedure. Surgical Findings: right tonsil neoplasm Complications Complications: No
[2024-12-24] MEDS: Lidocaine 1% (5 ml sdv) 5 ML Vial 10 ML IV (12:28)
--- NOTE | 2024-12-24 12:40 | PCM.POST.ANE ---
Anesthesia: Postop Eval I Current Vital Signs Temperature: 97.1 F Pulse Rate: 71 Blood Pressure: 164/101 Respiratory Rate: 16 Pulse Ox: 99 Oxygen Delivery Method: Room Air Assessment Airway patent: Yes Spontaneous unlabored respirations: Yes Mental status: Awake and Calm nausea: No Vomiting: No Anesthesia Complication: No Fluid Hydration Crystalloid volume administer (ml): 900 Total IV fluid infused: 900 Progress Note Anesthesia document: Postop Eval 1 completed: Yes
--- NOTE | 2024-12-24 12:43 | POSTOPAN2_ITS ---
Anesthesia Postop Eval I Sum Postop Eval Completion status Anesthesia document: Postop Eval 1 completed: Yes Anesthesia Postop Eval I Summary Anesthesia Postop Eval I Summary: Anesthesia Postop Eval I: Assessment Summary Airway patent Yes 12/24/24 12:40 ASSOCIATE PROFESSOR OF BIOSTATISTICS.SHOF Spontaneous unlabored Yes 12/24/24 12:40 ASSOCIATE PROFESSOR OF BIOSTATISTICS.SHOF respirations Mental status Awake,Calm 12/24/24 12:40 ASSOCIATE PROFESSOR OF BIOSTATISTICS.SHOF nausea No 12/24/24 12:40 ASSOCIATE PROFESSOR OF BIOSTATISTICS.SHOF Vomiting No 12/24/24 12:40 ASSOCIATE PROFESSOR OF BIOSTATISTICS.SHOF Anesthesia Postop Eval I: Fluid Summary Crystalloid volume administer 900 12/24/24 12:40 ASSOCIATE PROFESSOR OF BIOSTATISTICS.SHOF (ml) Colloids volume administered ( ml) Blood Product volume administered (ml) Total IV fluid infused 900 12/24/24 12:40 ASSOCIATE PROFESSOR OF BIOSTATISTICS.SHOF Anesthesia Postop Eval I: Summary Notes Anesthesia Complication No 12/24/24 12:40 ASSOCIATE PROFESSOR OF BIOSTATISTICS.SHOF Anesthesia Complication Comment: Post-operative progress note Anesthesia: Postop Eval II Evaluation Mental status: Awake Pain Level: 0 nausea: No Vomiting: No
--- NOTE | 2024-12-24 12:43 | PCM.POSTANE2 ---
Anesthesia Postop Eval I Sum Postop Eval Completion status Anesthesia document: Postop Eval 1 completed: Yes Anesthesia Postop Eval I Summary Anesthesia Postop Eval I Summary: Anesthesia Postop Eval I: Assessment Summary Airway patent Yes 12/24/24 12:40 HACKSAW [email or web address].SHOF Spontaneous unlabored Yes 12/24/24 12:40 HACKSAW INSPECTOR.SHOF respirations Mental status Awake,Calm 12/24/24 12:40 HACKSAW INSPECTOR.SHOF nausea No 12/24/24 12:40 HACKSAW INSPECTOR.SHOF Vomiting No 12/24/24 12:40 HACKSAW INSPECTOR.SHOF Anesthesia Postop Eval I: Fluid Summary Crystalloid volume administer 900 12/24/24 12:40 HACKSAW INSPECTOR.SHOF (ml) Colloids volume administered ( ml) Blood Product volume administered (ml) Total IV fluid infused 900 12/24/24 12:40 HACKSAW INSPECTOR.SHOF Anesthesia Postop Eval I: Summary Notes Anesthesia Complication No 12/24/24 12:40 HACKSAW INSPECTOR.SHOF Anesthesia Complication Comment: Post-operative progress note Anesthesia: Postop Eval II Evaluation Mental status: Awake Pain Level: 0 nausea: No Vomiting: No
[2024-12-24] MEDS: HYDROcodone Bitartrate/Apap 5/325 Tablet PO (13:24)
== END 2024-12-24 13:53 | disposition home or self-care (01) ==
LOC: SDC 09:50 → AC 09:50
PROVIDERS: Anesthesiology; PCP Family Medicine; Referring Provider Otolaryngology; Visit Provider Otolaryngology
PROC: (CPT 42826; principal; 2024-12-24 11:00)
DX: C09.9 Malignant neoplasm of tonsil, unspecified (principal); C77.0 Secondary and unspecified malignant neoplasm of lymph nodes of head, face and neck; E11.9 Type 2 diabetes mellitus without complications; K21.9 Gastro-esophageal reflux disease without esophagitis; I10 Essential (primary) hypertension; Z79.82 Long term (current) use of aspirin; J35.1 Hypertrophy of tonsils; Z87.891 Personal history of nicotine dependence
CPT/HCPCS: 42826; 00170; 80048; 83036; 85025; 88304; 88341; 88342; 93005; J2405

== ENCOUNTER 2025-01-30 10:22 | Day surgery (SDC) | payer MEDICARE, OTHER, SELFPAY ==
[2025-01-30] VITALS (9 sets, daily range): BP systolic 90–151; BP diastolic 60–81; PULSE 60–72; RESP 16; TEMP 36.1–36.2; O2SAT 96–99; BMI 29.9
[2025-01-30] MEDS: Lactated Ringers 1,000 ML 15 ML IV (11:04)
--- NOTE | 2025-01-30 11:25 | PCM.PRE.AN2 ---
ASA Classification* ASA Classification ASA Classification: 3 (tonsillar cancer, GERD, TAMIKA - had anesthesia on 12/24/24 with ENT for tonsillectomy) Assessment & Plan Anesthesia* Anesthesia Assessment Anesthesia Assessment: Discussed sedation and/or anesthesia options, risks, benefits, and alternatives with patient/parents/legal guardian/POA. Questions invited. The patient/parents/legal guardian/POA seems to understand and agrees to proceed with anesthesia plan. Reviewed the physical assessment, medical history, allergy history and patient home medications list prior to surgery/procedure/anesthetic and documented any changes. Performed airway and anesthesia risk assessments. Anesthesia Type Anesthesia Type: MAC History Source History Obtained from:: Patient and Chart Anesthesia Focused Assessment* Temperature: 97.2 F Pulse Rate: 65 Blood Pressure: 151/81 Respiratory Rate: 16 Pulse Ox: 99 Oxygen Delivery Method: Room Air Airway Assessment Mouth opens: >3 cm Mallampati Score: III Teeth Condition: Intact and Missing Neck Range of motion (ROM): Full ROM Labs Anesthesia Preop lab: CBC WBC, (4.4-11.0) 4.3 K/mm3 L 12/24/24, 10:15 RBC, (4.6-6.2) 4.84 M/mm3 12/24/24, 10:15 Hgb, (13.0-16.5) 15.0 g/dL 12/24/24, 10:15 Hct, (40-54) 43.4 % 12/24/24, 10:15 Plt Count, (150-450) 154 K/mm3 12/24/24, 10:15 CHEMISTRY Potassium, (3.3-5.1) 4.3 mmol/L 12/24/24, 10:15 Sodium, (133-145) 137 mmol/L 12/24/24, 10:15 BUN, (4-19) 19 mg/dL 12/24/24, 10:15 Creatinine, (0.70-1.20) 1.17 mg/dL 12/24/24, 10:15 Glucose, (70-99) 113 mg/dL H 12/24/24, 10:15 COAG Pre-Assessment Diagnosis/Proposed Procedure Planned Operative Procedure(s): INSERTION RIGHT POSS LEFT IJ PORT AND PEG TUBE Anesthesia History Anesthesia History - lead developer: Anesthesia History - lead developer Hx Hospitalization No 01/24/25 08:24 Any Problems With Anesthesia No 01/24/25 08:24 Cholinesterase deficiency No 01/24/25 08:24 You/Your Family Experience No 01/24/25 08:24 fever (hyperthermia) with Relationship Recent Exposure to Contagious No 01/30/25 10:49 Disease Does patient have nerve No 01/24/25 08:24 stimulator Patient instructed to have device shut off --Does patient have Pacemaker No 01/30/25 10:49 or ICD? When Was Last Pacemaker Check QUESTION #4 FULL TEXT: You/Your Family Experience fever (hyperthermia) with Anesthesia Last Oral Intake Last Oral intake: Last Oral Intake NPO since 20:00 01/30/25 10:49 Meds taken in AM with sips of Yes 01/30/25 10:49 water? Meds patient instructed to take am of surgery PONV PONV - lead developer: PONV - lead developer Female No 01/24/25 08:24 HX of Motion Sickness No 01/24/25 08:24 HX of N/V After Surgery No 01/24/25 08:24 Non-Smoker Yes 01/24/25 08:24 Duration of Surgery greater Yes 01/24/25 08:24 than 60 minutes Number of Risk Factors 2 01/24/25 08:24 PONV Score Moderate Risk 01/24/25 08:24 Height & Weight Height & Weight: Anesthesia: Height & Weight Height 5 ft 9 in 01/30/25 10:49 Weight: 92 kg 01/30/25 10:49 Body Mass Index (BMI) 29.9 01/30/25 10:49 Respiratory Assessment Respiratory Assessment - lead developer: Respiratory Tract Infection Hx - lead developer Hx Respiratory Tract Infection No 01/24/25 08:24 STOP Sleep Apnea STOP Sleep Apnea - lead developer: STOP Sleep Apnea - lead developer Hx Hypertension Yes: CONTROLLED ON MED 01/24/25 08:24 Hx Sleep Apnea No 01/24/25 08:24 CPAP BIPAP Do you snore loudly (louder Yes 01/24/25 08:24 than talking or can be heard Do you often feel tired/ No 01/24/25 08:24 fatigued/ sleepy during daytime? Has anyone observed you stop No 01/24/25 08:24 breathing during sleep? STOP Results Positive 01/24/25 08:24 QUESTION #5 FULL TEXT : Do you snore loudly (louder than talking or can be heard through closed doors)? 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 Specify any problems Hx of Preganancy in last 3 N/A 01/24/25 08:24 Months Nurse Filling Out Transfusion DSCHRIBER 01/24/25 08:24 & Questions: Date: 01/24/25 01/24/25 08:24 Time: 08:26 01/24/25 08:24 Patient unable to answer at this time (ie. confused, unrespo /Reproduction History /Reproductive History - lead developer: /Reproductive Hx- lead developer Hx Now No 01/24/25 08:24 Gestational Age (in weeks): EDC: Hx Hx Para Hx Section SAB No 01/24/25 08:24 Does the father of the baby or his family experience fever w Father of the baby Malignant Hypertension history comment Active Medications Active Medications: Current Medications Generic Name Dose Route Start Last Admin Trade Name Freq PRN Reason Stop Dose Admin Lactated Ringer's 1,000 mls @ 15 mls/hr 01/30/25 10:30 01/30/25 11:04 IV 15 mls/hr .Q48H SYD Administration PFSH Medical History (Updated 01/25/25 @ 13:12 by Ragini Willis) Encounter for education Cancer Wears hearing aid Wears glasses Gastric reflux Shortness of breath on exertion High cholesterol Neuropathy HTN (hypertension) Diabetes Home Medications ?Medication ?Instructions ?Recorded ?Last Taken ?Type gabapentin 600 mg tablet 600 mg PO QHS 06/15/21 01/29/25 History rosuvastatin 5 mg tablet 5 mg PO DAILY 06/15/21 01/29/25 History empagliflozin 12.5 mg-metformin 2 tab PO DAILY 12/21/24 01/29/25 History 1,000 mg tablet lisinopril 30 mg tablet 30 mg PO DAILY 12/21/24 01/29/25 History omeprazole 20 mg capsule,delayed 20 mg PO BID 12/21/24 01/30/25 06:30 History release semaglutide 1 mg/dose (4 mg/3 mL) 1 mg subcut LALA 12/21/24 01/13/25 History subcutaneous pen injector (Ozempic) lidocaine-prilocaine 2.5 %-2.5 % 1 applic topical ONCE PRN port 01/24/25 Unknown Rx topical cream access 30 days #30 grams ondansetron 8 mg disintegrating 8 mg PO Q8H PRN nausea and 01/24/25 Unknown Rx tablet vomiting #30 tabs Allergy/AdvReac Type Severity Reaction Status Date / Time No Known Allergies Allergy Verified 01/25/25 13:13 Family History Father Cancer Tonsil cancer Mother CVA (cerebral vascular accident) Grandfather CVA (cerebral vascular accident) Surgical History History of tonsillectomy History of carpal tunnel release of both wrists Social History Smoking Status: Former smoker Tobacco: How many years used: 15 alcohol intake: never substance use type: does not use Review of Systems (Anesthesia) ROS Narrative System reviewed and no additional complaints, except as documented. Physical Exam Const alert, oriented x3 and average body habitus Resp normal respiratory effort, normal air movement and clear to auscultation bilaterally Cardio regular rate, regular rhythm and no murmurs; Negative for diaphoretic
--- NOTE | 2025-01-30 11:48 | NS ---
01/30/25: Met with patient and spouse in [place] prior to port and PEG tube placement. Introduced self and roll with plans to follow patient during cancer treatment for nutritional needs. Pt reports eating well lately. Did have a tonsillectomy recently and had very poor PO intakes and reported 15lbs weight loss in ~2 weeks. Pt hopeful that he won't have to use the PEG tube but understands it's purpose. RDN contact information provided, encouraged them to reach out with any questions or concerns. Thu Zurita RDN, LD
--- NOTE | 2025-01-30 12:47 | PCM.HP.BLA ---
History and Physical Date of Admission: 01/30/25 Intake Vital Signs 01/11/2510:17 01/16/2515:05 01/24/2514:42 01/25/2513:12 Height 5 ft 9 in 5 ft 9 in 5 ft 9 in 5 ft 9 in Weight: 206 lb BMI 30.4 BP 134/82 H Blood Pressure Location Rt brachial Position Sitting Respiration 17 Pulse 75 Pulse Source Monitor Pulse Oximetry (%) 98 Oxygen Delivery Method room air Intake Visit Reasons: peg and port Chief Complaint: peg and port Is patient in pain?: No Allergies No Known Allergies Allergy (Verified 01/25/25 13:13) Medications ?Medication ?Instructions ?Recorded ?Confirmed ?Type gabapentin 600 mg tablet 600 mg PO QHS 06/15/21 01/25/25 History rosuvastatin 5 mg tablet 5 mg PO DAILY 06/15/21 01/25/25 History empagliflozin 12.5 mg-metformin 2 tab PO DAILY 12/21/24 01/25/25 History 1,000 mg tablet lisinopril 30 mg tablet 30 mg PO DAILY 12/21/24 01/25/25 History omeprazole 20 mg capsule,delayed 20 mg PO BID 12/21/24 01/25/25 History release semaglutide 1 mg/dose (4 mg/3 mL) 1 mg subcut LALA 12/21/24 01/25/25 History subcutaneous pen injector (Ozempic) lidocaine-prilocaine 2.5 %-2.5 % 1 applic topical ONCE PRN port 01/24/25 01/25/25 Rx topical cream access 30 days #30 grams ondansetron 8 mg disintegrating 8 mg PO Q8H PRN nausea and 01/24/25 01/25/25 Rx tablet vomiting #30 tabs Have you fallen in the past year?: No PFSH Medical History (Updated 01/25/25 @ 13:12 by Ragini Willis) Encounter for education Cancer Wears hearing aid Wears glasses Gastric reflux Shortness of breath on exertion High cholesterol Neuropathy HTN (hypertension) Diabetes Surgical History History of tonsillectomy History of carpal tunnel release of both wrists Family History Father Cancer Tonsil cancer Mother CVA (cerebral vascular accident) Grandfather CVA (cerebral vascular accident) Social History Smoking Status: Former smoker Tobacco: How many years used: 15 alcohol intake: never substance use type: does not use HPI HPI HPI: Patient is a 64-year-old male with tonsillar cancer. I discussed port and PEG placement with the patient in detail. Patient has no symptoms at the current time. He underwent tonsillectomy with lymph node biopsy. ROS General General: No weight change, appetite, fatigue, colon cancer, breast cancer or weakness HEENT HEENT: Yes difficulty swallowing and swollen glands; No eye injury, eye surgery or hoarseness Endo Endocrine: Yes diabetes mellitus; No thyroid disease, thyroid cancer, Hair loss, heat intolerance or cold intolerance Skin Skin: No rash or changing moles Musc Musculoskeletal: No back problems, arthritis, rheumatoid arthritis, gout or joint pain Cardio Cardiovascular: Yes high blood pressure; No murmur, pacemaker, heart disease, atrial fibrillation, heart attack, heart stent, palpitations, shortness of breath with exertion or chest pain Psych Psychiatric: No depression, anxiety or hearing voices Resp Respiratory: No shortness of breath, No sleep apnea, No cough, No COPD, No asthma, No emphysema and No wheezing Gastro Gastrointestinal: No abdominal pain, No nausea or vomiting, No diarrhea, No constipation, No blood in stool, Yes acid reflux, No hemorrhoids, No ulcers, No gallbladder problem and No black,tarry stools [place] Hematologic: No blood thinners, No blood disorders, No bleeding, No anemia and No blood clots Neuro Neurologic: No system reviewed and no additional complaints, except as documented, No as per HPI, No abnormal gait, No abnormal hearing, No abnormal movements, No abnormal speech, No behavioral changes, No burning sensations, No confusion, No convulsions, No disequilibrium, No dizziness, No localized weakness, No frequent falls, No headache(s), No lack of coordination, No loss of vision, No memory loss, Yes numbness, No other visual disturbances, No radicular pain, No restless legs, No sensory deficit, No syncope, Yes tingling, No tremor(s), No weakness and No other Exam Const General: cooperative Orientation: alert and oriented x3 HENMT Head: normal to inspection Neck Neck: normal visual inspection and full ROM Chest Chest palpation & inspection: normal inspection of the chest Resp Effort & Inspection: normal respiratory effort Auscultation: clear to auscultation bilaterally Cardio Rate: regular rate Rhythm: regular rhythm GI Inspection: non-distended Palpation: soft and nontender Skin General: no rashes or lesions noted Neuro General: patient alert and patient oriented x3 Extrem General: full ROM Psych Appearance: grossly normal Mental Status: mental status grossly normal Assessment and Plan Assessment and Plan (1) Encounter for insertion of venous access port: Status: Acute (2) Encounter for PEG (percutaneous endoscopic gastrostomy): Status: Acute Plan I discussed port placement in detail with the patient. I discussed right chest port placement in detail. I discussed the risks including not limited to bleeding, infection, injury to other organs or pneumothorax. Patient understands the risks and is 1 to proceed. I also discussed EGD with PEG tube placement. I discussed the risks of this. I explained endoscopy in detail to the patient. I explained the risks including but not limited to stroke or heart attack with anesthesia, perforation of the GI tract, bleeding, infection. I explained that any of these could necessitate further emergency surgery. The patient understands and all questions were answered sufficiently. The patient wishes to proceed with procedure. Sebastian Oliver MD Pager: [facility] [address] [place] [address] [address] [place] [address] Office: I have examined the patient and the H&P has been reviewed. There are no clinical changes since date of exam.
[2025-01-30] MEDS: Midazolam 2 MG/2 ML Syringe IV (13:12)
[2025-01-30] MEDS: Cefazolin 1 GM/5 ML Vial 2 GM IV (13:18)
[2025-01-30] MEDS: Lidocaine 1% /Epi 1:100 (20ml) 20 ML Vial (13:45)
[2025-01-30] MEDS: dexMEDEtomidine 200 MCG/2 ML ML 30 MCG IV (13:46)
--- NOTE | 2025-01-30 13:57 | PCM.OPRPT ---
Operative Report (Standard) Operative Information Date of Procedure: 01/30/25 Pre-Operative Diagnosis: Tonsillar cancer and need for vascular access and PEG tube Post-Operative Diagnosis: Same Surgery/Procedure Performed: 1. Ultrasound and fluoroscopy guided right chest port placement utilizing right IJ 2. EGD with PEG tube placement photonics engineering technologist: No Type of Anesthesia: Local MAC RN Documented Start/Stop Times: Operation Date: 01/30/25 13:00 <No data on this case meets the specified criteria> Procedure Start Time: 13:10 Procedure Stop Time: 13:58 Select all DRAINS/GRAFTS/IMPLANTS that apply: Implanted device Implanted device details: 8 [employer] PowerPort and PEG tube Estimated Blood Loss: 10 Specimen collected: No Description of surgery: After obtaining informed consent patient was brought back to the operating room MAC anesthesia was induced and the right chest and neck were prepped in normal sterile fashion. Ultrasound was used to evaluate both IJs and the right IJ was selected. Next, using a needle, the right IJ was accessed and a guidewire was passed on into the superior vena cava under fluoroscopy guidance. A small incision was made over the puncture site and the dilator introducer was placed over the guidewire. Next this was capped and the pocket was made for the port. 1% lidocaine with epinephrine was injected in the proposed port site. An incision was made with scalpel. Electrocautery was used to make a pocket under the skin and subcutaneous tissue. Hemostasis was obtained. Next, the catheter was tunneled up to the neck incision site and placed through the introducer. The peel-away introducer was removed and the position of the catheter was confirmed on fluoroscopy. Next, the catheter was trimmed and attached to the port with the locking device. Interrupted 2-0 Vicryl sutures were used to anchor the port to the chest wall and then the port was placed inside the pocket. The pocket was then flushed with saline and the port irrigated with saline. There was good blood return and the port flushed easily. Next, heparin was injected into the port. The skin was closed with subcutaneous interrupted 3-0 Vicryl sutures. A single 3-0 Vicryl sutures placed under the skin at the neck incision site. Steri-Strips were placed as well as op sites. Attention was then turned to placing a PEG tube. The bite-block was placed and a well-lubricated endoscope was placed through the mouth and down in the esophagus and into the stomach and the stomach was insufflated. Using palpation a spot was located in the left upper quadrant and there was good transillumination. An area overlying this was injected with local anesthetic and a small incision was made. The needle was placed through the anterior abdominal wall and into the stomach under direct visualization. A snare was then used to grasp the guidewire and it was removed through the mouth. The guidewire was attached to the PEG tube and brought through the mouth and down into the stomach and out through the abdominal wall. The scope was reinserted and the bumper was gently touching the skin at 4 cm and the stomach. The connector was placed at the end of the PEG tube and it was clamped and capped. Triple antibiotic ointment was placed on the incision and then the dressings were applied. Patient tolerated procedure well, was taken to PACU in stable condition. Chest x-ray will be obtained. Surgical Findings: None Complications Complications: No Admit VTE Documentation VTE Mechan Device Prophylaxis: SCD's
--- NOTE | 2025-01-30 14:00 | DCINST_ITS ---
Discharge Instructions Procedure Port-A-Cath Diet Discharge Diet: Light diet - advance as tolerated (Pain medication may cause nausea. You should typically eat light foods as you take your pain medication.) Activity Discharge Activity: Return to Normal Activity and May Shower (with your bandage in place in 1-2 days after surgery. DO NOT SHOWER WHEN YOUR PORT IS ACCESSED.) Dressing / Incision Call your doctor if your incision/area has: Continuous Slow Oozing, Sudden Increased Bleeding, Increased Pain/ Swelling, Increased Redness and Foul Smelling Discharge Call your doctor if you observe: Fever of 101 or Higher Remove Dressing in: 2 days Cleanse incision/area with: Soap & Water Follow Up Care Please Follow Up With: Sebastian Oliver MD When: as needed [phone] Test Results: Test results from this visit will be discussed in further detail at your follow- up appointment, if applicable. Discharge Plan Admission Attending Provider: Sebastian Oliver Primary Care Provider: Ej Oliveira Instructions Print Language: Austrian Discharge Orders/Prescriptions Prescriptions: New oxycodone 5 mg tablet 5 - 10 mg PO Q6H PRN (Reason: pain) 5 Days Qty: 14 0RF No Action lidocaine-prilocaine 2.5-2.5 % cream 1 applic topical ONCE PRN (Reason: port access) 30 Days Qty: 30 2RF ondansetron 8 mg tablet,disintegrating 8 mg PO Q8H PRN (Reason: nausea and vomiting) Qty: 30 2RF gabapentin 600 mg tablet 600 mg PO QHS rosuvastatin 5 mg tablet 5 mg PO DAILY omeprazole 20 mg capsule,delayed release(DR/EC) 20 mg PO BID empagliflozin-metformin 12.5-1,000 mg tablet 2 tab PO DAILY lisinopril 30 mg tablet 30 mg PO DAILY Ozempic 1 mg/dose (4 mg/3 mL) pen injector 1 mg subcut LALA Referrals / Follow Up: Ej Oliveira MD [Primary Care Provider, Family Practice] Disposition Disposition (needs filled in before D/C Order can be placed): Home, Self Care
--- NOTE | 2025-01-30 14:02 | RAD_ITS ---
PROCEDURE: CXR FOR LINE PLACEMENT 01/30/2025 REASON FOR EXAM: LINE PLACEMENT TECHNIQUE: Procedure Code: RADCXRLP Modality: DX Procedure: CXR FOR LINE PLACEMENT COMPARISON: Chest x-ray of 06/15/2021. RAD/CXR for Line Placement IMPRESSION: Right subclavian central venous catheter in place, with tip likely at the level of the upper right atrium or cavoatrial junction. No pneumothorax is seen. No pleural effusion is evident. Lungs appear clear of acute disease. The cardiomediastinal silhouette is stable, without evidence of cardiomegaly. No interval osseous change is seen. Reading Location: [id number]
--- NOTE | 2025-01-30 14:08 | PCM.POST.ANE ---
Anesthesia: Postop Eval I Current Vital Signs Temperature: 97.1 F Pulse Rate: 70 Blood Pressure: 90/60 Respiratory Rate: 16 Pulse Ox: 98 Oxygen Delivery Method: Room Air Assessment Airway patent: Yes Spontaneous unlabored respirations: Yes Mental status: Awake and Calm nausea: No Vomiting: No Anesthesia Complication: No Fluid Hydration Crystalloid volume administer (ml): 1,000 Total IV fluid infused: 1,000 Progress Note Anesthesia document: Postop Eval 1 completed: Yes
--- NOTE | 2025-01-30 16:06 | POSTOPAN2_ITS ---
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 Spontaneous unlabored Yes 01/30/25 14:09 [email or web address] [email or web address] respirations Mental status Awake,Calm 01/30/25 14:09 [email or web address] [email or web address] nausea No 01/30/25 14:09 HOUSETRAILER [email or web address] Vomiting No 01/30/25 14:09 [email or web address] Anesthesia Postop Eval I: Fluid Summary Crystalloid volume administer 1,000 01/30/25 14:09 [email or web address] (ml) Colloids volume administered ( ml) Blood Product volume administered (ml) Total IV fluid infused 1,000 01/30/25 14:09 HOUSETRAILER [email or web address] Anesthesia Postop Eval I: Summary Notes Anesthesia Complication No 01/30/25 14:09 [email or web address] [email or web address] Anesthesia Complication Comment: Post-operative progress note Anesthesia: Postop Eval II Evaluation Mental status: Awake Pain Level: 0 nausea: No Vomiting: No Complications Anesthesia Complication: No
--- NOTE | 2025-01-30 16:06 | PCM.POSTANE2 ---
Anesthesia Postop Eval I Sum Postop Eval Completion status Anesthesia document: Postop Eval 1 completed: Yes Anesthesia Postop Eval I Summary Anesthesia Postop Eval I Summary: Anesthesia Postop Eval I: Assessment Summary Airway patent Yes 01/30/25 14:09 [employer]URNER AND FORMER [email or web address] Spontaneous unlabored Yes 01/30/25 14:09 [employer] AND FORMER [email or web address].[email or web address] respirations Mental status Awake,Calm 01/30/25 14:09 [employer] AND FORMER [email or web address].[email or web address] nausea No 01/30/25 14:09 [employer] AND [employer]MER AUTOMATIC.JDEF Vomiting No 01/30/25 14:09 [employer] AND [employer]MER [email or web address] Anesthesia Postop Eval I: Fluid Summary Crystalloid volume administer 1,000 01/30/25 14:09 [employer]MER [email or web address].JDEF (ml) Colloids volume administered ( ml) Blood Product volume administered (ml) Total IV fluid infused 1,000 01/30/25 14:09 [employer] AND [employer]MER [email or web address] Anesthesia Postop Eval I: Summary Notes Anesthesia Complication No 01/30/25 14:09 [employer] AND FORMER [email or web address] Anesthesia Complication Comment: Post-operative progress note Anesthesia: Postop Eval II Evaluation Mental status: Awake Pain Level: 0 nausea: No Vomiting: No Complications Anesthesia Complication: No
== END 2025-01-30 15:22 | disposition home or self-care (01) ==
LOC: EN 10:23 → AC 10:25
PROVIDERS: PCP Family Medicine; Referring Provider Family Medicine; Visit Provider Surgery
PROC: (CPT 36561; principal; 2025-01-30 12:15)
PROC: 0DJ08ZZ Inspection of Upper Intestinal Tract, Via Natural or Artificial Opening Endoscopic (ICD-10-PCS; CPT 43235; principal; 2025-01-30 12:55)
DX: C09.9 Malignant neoplasm of tonsil, unspecified (principal); E11.40 Type 2 diabetes mellitus with diabetic neuropathy, unspecified; K21.9 Gastro-esophageal reflux disease without esophagitis; Z79.84 Long term (current) use of oral hypoglycemic drugs; I10 Essential (primary) hypertension; Z87.891 Personal history of nicotine dependence; E78.00 Pure hypercholesterolemia, unspecified; Z79.899 Other long term (current) drug therapy; Z79.85 Long-term (current) use of injectable non-insulin antidiabetic drugs
CPT/HCPCS: 36561; 43246; 71045; 77001; C1788; J2405

== ENCOUNTER → 2025-02-14 | Outpatient (CLI) | payer MEDICARE, OTHER, SELFPAY ==
--- NOTE | 2025-02-14 08:45 | ST.MBS ---
Modified Barium Swallow Patient Information Study Date: 02/14/25 Study Time: 08:00 Direct Billable Minutes: 59 Total Minutes procedure & reportin Diagnosis: SCC of the R tonsil C09.9 Referring Physician: Casey Long Reason for Referral: Assess swallow function, assess risk for aspiration, and determine recommendations for least restrictive diet textures and compensatory strategies to improve swallowing safety. 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 Pt has PEG tube in place. Dysphagia Hx: BSE 02/13/2025 revealed mild oropharyngeal dysphagia w/ significant xerostomia, dys-/hyogeusia, sensation of retention of dry foods in pharynx. This MBSS was recommended by [facility] to further assess swallow function and aspiration risk. Current Diet Ordered: Regular textures / Thin liquids Dentition: WNL and Natural Teeth Mental Status: WNL Respiratory Status: Oxygenating on Room Air Penetration-Aspiration Scale Penetration-Aspiration Scale: OBJECTIVE ASSESSMENT OF SWALLOW FUNCTION (QUANTITATIVE ? PER TRIAL): PENETRATION / ASPIRATION SCALE (MOTA): 1 = does not enter airway 2 = enters airway/above vocal folds/ejected 3 = enters airway/above vocal folds/not ejected 4 = enters airway/contacts vocal folds/ejected 5 = enters airway/contacts vocal folds/not ejected 6 = enters airway/below vocal folds/ejected 7 = enters airway/below vocal folds/not ejected despite effort 8 = enters airway/below vocal folds/no effort VIDEOFLOROSCOPIC SCALE SCORE (MOTA): Grade I = aspiration of material that has penetrated into the laryngeal vestibule, intact cough reflex Grade II = aspiration < 10 % of the bolus, intact cough reflex Grade III = aspiration of < 10 % of the bolus, reduced cough reflex or aspiration of > 10 % of the bolus, intact cough reflex Grade IV = aspiration of > 10 % of the bolus, reduced cough reflex Penetration-Aspiration Scale Score Thin Liquid via teaspoon: Result: 2= enter airway/above vocal folds/ejected Thin Liquid via teaspoon Trial 2: Result: 1= does not enter airway Thin Liquid via large single sip: cup: Result: 2= enter airway/above vocal folds/ejected Hilger Thick Liquid via small single sip: cup: Result: 1= does not enter airway Pudding via teaspoon: Result: 1= does not enter airway Comment: Esophageal screen - Minimal retention in the upper esophagus, additional retention in the middle and lower esophagus. 1/2 Cookie: Result: 1= does not enter airway Comment: Esophageal screen - Retention in the middle and lower esophagus. Thin Liquid via single sip: straw: Result: 2= enter airway/above vocal folds/ejected Comment: Esophageal screen - Liquid wash effectively cleared esophageal retention of previous trials. Thin Liquid via sequential sips:straw: Result: 2= enter airway/above vocal folds/ejected Oral Phase Labial Seal: No Labial Escape Tongue Control During Bolus Hold: Cohesive bolus between tongue to palatal seal Bolus Preparation/Mastication: Timely and efficient chewing and mashing Bolus Transport/Lingual Motion: Brisk tongue motion Oral Residue: Residue collection on oral structures Pharyngeal Phase Initiation of Pharyngeal Swallow: Bolus head in valleculae Soft Palate Elevation: Trace column of contrast/air between soft palate and pharyngeal wall Laryngeal Elevation: Comp. Superior move thyroid cart w/comp. apprx arytenoid cart-epig pet Anterior Hyoid Excursion: Partial anterior movement Epiglottic Movement: Complete inversion Laryngeal Vestibule Closure at Height of Swallow: Incomplete; narrow column of air/contrast in laryngeal vestibule Pharyngeal Stripping Wave: Present - diminished Pharyngoesophageal Segment Opening: Parital distension and partial duration; parital obstruction of flow Tongue Base Retraction: Narrow column of contrast between tongue base & post. pharyngeal wall Pharyngeal Residue: Collection of residue within or on pharyngeal structures Esophageal Phase Esophageal Clearance: Esophageal retention w/ retrograde flow through pharyngoesophageal seg (Trace retention in the UES w/ retrograde flow to the pyriforms) Diagnosis/Impression Diagnosis: Mild pharyngoesophageal dysphagia R13.14 MBS Impressions: The oral phase is grossly WNL. Minimal to mild oral residues, which fully cleared w/ independent use of a second swallow as needed. Oral residue is likely due to xerostomia. The pharyngeal phase is marked by... -Mildly decreased pharyngeal motility due to decreased TB retraction and pharyngeal stripping wave w/ trace-mild pharyngeal residue. -Trace laryngeal penetration w/ thin liquids; however, due to good laryngeal vestibular closure pt had complete ejection of barium from the laryngeal vestibule and no aspiration. The esophageal phase is marked by... -Trace retention of barium in the UES w/ retrograde flow to the pyriform sinuses. -Retention of pudding and cookie, mostly in the middle and lower esophagus, which fully cleared w/ a single liquid wash. Recommendations Diet: Regular Textures (Avoid tough, dry meats) and Thin Liquids Compensatory Strategies: Small Bites, Small Sips, Slow Rate, Alternate bites/solids and sips/liquids, Sitting upright and Remain sitting upright for 30 minutes after PO intake Recommend Repeat Modified Barium Swallow: Yes Comment: Repeat MBSS 3 months after completion of chemoradiation to monitor swallow function as the patient is at risk for worsening dysphagia and aspiration risk s/p chemoradiation treatment. Need for Skilled Speech Therapy Services: Yes Comment: Continue per OP ST POC. Education Completed: 1. Described result of evaluation., 2. Pt understands evaluation & agrees with goals and treatment plan. and 7. Pt requires further education on strategies & risks. Comment: If pt begins to experience worsening s/s of reflux, retention, or regurgitation, consider GI consult. Status Active ST Patient: Active Contact Information [facility] Speech Therapy:: Radha Green M.A. [facility] Speech-Language Pathologist [facility] [address] [place] [address] [email or web address] [phone]
== END | disposition home or self-care (01) ==
LOC: RAD 08:03
PROVIDERS: PCP Family Medicine; Referring Provider Student in an Organized Health Care Education/Training Program; Visit Provider Student in an Organized Health Care Education/Training Program
DX: C09.9 Malignant neoplasm of tonsil, unspecified (principal)
CPT/HCPCS: 74230; 92611

== ENCOUNTER 2025-03-04 09:30 | Outpatient (RCR) | payer MEDICARE, OTHER, SELFPAY | END 2025-03-06 23:59 | disposition home or self-care (01) | LOC: NS 09:30 | PROVIDERS: PCP Family Medicine; Visit Provider Student in an Organized Health Care Education/Training Program | DX: Z71.3 Dietary counseling and surveillance (principal); C09.9 Malignant neoplasm of tonsil, unspecified | CPT/HCPCS: 97802; 97803 ==